=== PATIENT | female | born 1990 | race Caucasian/White ===

== ENCOUNTER 2020-06-18 09:56 | Inpatient (IN) ==
[2020-06-18] MEDS ORDERED: EPHEDrine 50 MG/ML VIAL IVP PRN (10:58)
[2020-06-18] MEDS ORDERED: Epidural Premix (fent/bupiv) 110 ML EP SCH (11:00)
[2020-06-18] MEDS ORDERED: Ondansetron 4 MG/2 ML VIAL IVP PRN (11:10)
[2020-06-18] MEDS ORDERED: Famotidine 20 MG/2 ML VIAL IVP PRN (11:10)
[2020-06-18] MEDS ORDERED: Naloxone 0.4 MG/ML INJ IVP PRN (11:10)
[2020-06-18] MEDS ORDERED: Azithromycin 500 MG in 0.9 % Sodium Chloride 250 ML IVPB ONE (11:10)
[2020-06-18] MEDS ORDERED: Metoclopramide 10 MG/2 ML VIAL IVP PRN (11:10)
[2020-06-18] MEDS ORDERED: *HR* Nalbuphine 10 MG/ML AMPUL IV PRN (11:10)
[2020-06-18] MEDS ORDERED: Ringers Solution, Lactated 1,000 ML IVC SCH (11:15)
[2020-06-18 11:37] LABS: Basophils % 0.2 %; Eosinophils # 0.1 K/mcL (0.0-0.6); Eosinophils % 0.8 %; Hematocrit 38.1 % (35.3-44.9); Immature Granulocytes % 0.8 % (0-4); Lymphocytes # 2.2 K/mcL (0.6-4.6); Lymphocytes % 18.5 %; Mean Corpuscular HGB Conc 31.5 g/dL (31.6-35.5); Mean Corpuscular Hemoglobin 26.7 pg (28.0-33.3); Mean Corpuscular Volume 84.7 fL (83.0-100.0); Mean Platelet Volume 10.9 fL (9.4-12.4); Monocytes # 0.6 K/mcL (0.0-1.3); Monocytes % 5.4 %; Neutrophils # 8.8 K/mcL (1.6-8.9); Platelet Count 245 K/mcL (140-400); Red Cell Distribution Width 14.6 % (11.5-14.5); Segmented Neutrophils % 74.3 %; White Blood Count 11.8 K/mcL (4.3-11.1)
[2020-06-18 11:45] LABS: Amphetamine Screen,Urine Negative ng/mL (Cutoff=1000); Barbiturate Screen,Urine Negative ng/mL (Cutoff=200); Benzodiazepines Screen,Urine Negative ng/mL (Cutoff=200); Cannabinoid Screen,Urine Negative ng/mL (Cutoff = 50); Cocaine Screen,Urine Negative ng/mL (Cutoff= 300); Opiate Screen,Urine Negative ng/mL (Cutoff=300); Phencyclidine Screen,Urine Negative ng/mL (Cutoff=25)
[2020-06-18] MEDS ORDERED: Ropivacaine/PF 0.2% 20 ML VIAL ONE (17:07)
[2020-06-18] MEDS ORDERED: *HR* FentaNYL (PF) 100 MCG/2 ML VIAL ONE (17:07)
[2020-06-18] MEDS ORDERED: Oxytocin 20 units/ LR 1000 mL 20 UNIT/1,000 ML BAG IVC ONE ×2 (18:03→21:02)
[2020-06-18] MEDS ORDERED: Ibuprofen 600 MG TABLET PO PRN (21:02)
[2020-06-18] MEDS ORDERED: Oxytocin 20 units/ LR 1000 mL 20 UNIT/1,000 ML BAG IVC SCH (21:02)
[2020-06-18] MEDS ORDERED: Acetaminophen 325 MG TABLET PO PRN (21:02)
[2020-06-19] MEDS ORDERED: Prenatal Vit/FA 1 EACH TABLET PO SCH (09:00)
[2020-06-19 15:30] VITALS: BP 111/68
== END 2020-06-19 15:49 | disposition home or self-care (01) | DRG 807 ==
LOC: 1NENULAB 09:56 → 1NENUOBS 20:43
PROVIDERS: ADMIT Obstetrics & Gynecology; ATTEND Obstetrics & Gynecology